=== PATIENT | female | born 1955 | race American Indian/Alaskan Native ===

== ENCOUNTER 2016-12-06 18:08 | Emergency (ER) | payer OTHER ==
[2016-12-06 18:23] VITALS: RESP 18; O2SAT 99
--- NOTE | 2016-12-06 19:47 | C.PDOC ---
History Of Present Illness 61 yo female with niddm co bilateral side pain, right more than left, for more than a week. pt sts she was couging persistently and sneezing a lot, no fever or chills. pt seen by pmd last week for this and prescribed cough medicine and allergy medicine. pt sts both sides hurt when she breaths. laughs. moves, coughs or sneezes. no fever or chills. pt with no chest pain and no sob. Time Seen by Provider: 12/06/16 18:41 Chief Complaint (Nursing): Rib Injury History Per: Patient History/Exam Limitations: no limitations Onset/Duration Of Symptoms: Days (10) Current Symptoms Are (Timing): Still Present Severity: Moderate Reports Recently: Treated By A Physician Recent travel outside of the [place]: No Past Medical History Reviewed: Historical Data, Nursing Documentation, Vital Signs Vital Signs: Last Vital Signs Temp 98.7 F 12/06/16 20:11 Pulse 80 12/06/16 20:11 Resp 18 12/06/16 20:11 BP 118/63 12/06/16 20:11 Pulse Ox 99 12/06/16 20:11 - Medical History PMH: Diabetes Family History: States: Unknown Family Hx - Social History Hx Tobacco Use: No Hx Alcohol Use: No Hx Substance Use: No - Immunization History Hx Tetanus Toxoid Vaccination: No Hx Influenza Vaccination: No Hx Pneumococcal Vaccination: No Review Of Systems Constitutional: Negative for: Fever, Chills Cardiovascular: Negative for: Chest Pain, Palpitations Respiratory: Positive for: Cough, Pleuritic Pain. Negative for: Shortness of Breath, SOB with Excertion Gastrointestinal: Negative for: Abdominal Pain Musculoskeletal: Negative for: Neck Pain, Back Pain Skin: Negative for: Bruising Neurological: Negative for: Weakness, Numbness Physical Exam - Physical Exam Appears: Non-toxic, No Acute Distress Skin: Normal Color, Warm, Dry Head: Atraumatic, Normacephalic Neck: Normal ROM, No Midline Cervical Tenderness Chest: Symmetrical, No Deformity, Tenderness (bilateral lower rib cage area in axillary line; no step off, no crepitus noted;no ecchymosis. ) Respiratory: No Accessory Muscle Use, No Rales, No Rhonchi, No Stridor, No Wheezing Gastrointestinal/Abdominal: Soft, No Tenderness Back: Normal Inspection, No CVA Tenderness, No Vertebral Tenderness Neurological/Psych: Oriented x3, Normal Speech ED Course And Treatment O2 Sat by Pulse Oximetry: 99 - Radiology CXR: Interpreted by Me, Viewed By Me CXR Interpretation: No: No Acute Disease, Infiltrates Medical Decision Making Medical Decision Making: cxr neg/ pain decreased. likely musculoskeletal pain. will d/c with nsaids and pmd f/u Disposition Counseled Patient/Family Regarding: Diagnosis, Need For Followup, Rx Given - Disposition Referrals: Norma Garcia MD [Medical Doctor] - Disposition: HOME/ ROUTINE Disposition Time: 20:02 Condition: STABLE Additional Instructions: Continue taking medication for cough and sneezing. Hold side if coughing or sneezing. Take naproxen for pain as directed. Follow up with Dr Garcia. Return to ER for any worse symptoms. Prescriptions: Naproxen 500 mg PO BID #20 tab Instructions: Chest Wall Pain (ED) Forms: General Discharge Instructions - Clinical Impression Clinical Impression: Sprain of ribs, initial encounter
[2016-12-06 20:11] VITALS: BP 118/63; PULSE 80; TEMP 98.7
--- NOTE | 2016-12-07 08:34 | RAD ---
HISTORY: right lateral rib pin x 1 week s/p coughing COMPARISON: Print for No prior. TECHNIQUE: Chest PA and lateral FINDINGS: LUNGS: No active pulmonary disease. PLEURA: No significant pleural effusion identified. No pneumothorax apparent. CARDIOVASCULAR: Normal. OSSEOUS STRUCTURES: No significant abnormalities. VISUALIZED UPPER ABDOMEN: Normal. OTHER FINDINGS: None. IMPRESSION: No active disease. Concordant results with the preliminary interpretation rendered by the emergency department physician procedure.
== END 2016-12-06 20:12 | disposition home or self-care (01) ==
LOC: C.ER 18:08
DX: S23.41XA Sprain of ribs, initial encounter (principal); X58.XXXA Exposure to other specified factors, initial encounter
CPT/HCPCS: 71020; 96372; 99283; J1885

== ENCOUNTER 2018-01-10 18:22 | Emergency (ER) | payer OTHER ==
[2018-01-10 19:52] LABS: BASO # 0.1 K/uL (0.0-0.2); BASO % 1.2 % (0.0-2.0); EOS # 0.2 K/uL (0.0-0.7); EOS % 2.5 % (0.0-4.0); HEMOGLOBIN 13.4 g/dL (11.0-16.0); LYMPH # 3.2 K/uL (1.0-4.3); LYMPH % 32.7 % (20.0-40.0); MEAN CELL VOLUME 94.2 fL (81.0-99.0); MEAN CORPUSCULAR HEMOGLOBIN 31.6 pg (27.0-31.0); MEAN CORPUSCULAR HGB CONC 33.5 g/dL (33.0-37.0); MEAN PLATELET VOLUME 8.5 fL (7.2-11.7); MONO # 0.4 K/uL (0.0-0.8); MONO % 4.3 % (0.0-10.0); NEUT # 5.7 K/uL (1.8-7.0); NEUT % 59.3 % (50.0-75.0); NRBC % 0.2 % (0.0-2.0); RBC 4.26 Mil/uL (3.80-5.20); RED CELL DISTRIBUTION WIDTH 13.1 % (11.5-14.5); WHITE BLOOD COUNT 9.7 K/uL (4.8-10.8)
[2018-01-10 20:03] LABS: ALB/GLOB RATIO 1.5 (1.0-2.1); ALBUMIN 4.2 g/dL (3.5-5.0); ALT/SGPT 27 U/L (9-52); AST/SGOT 18 U/L (14-36); BLOOD UREA NITROGEN 15 mg/dL (7-17); CALCIUM 9.1 mg/dl (8.6-10.4); GFR NON-AFRICAN AMERICAN > 60
[2018-01-10] MEDS ORDERED: Iodixanol 320 MG/ML 100 ML BOTTLE IV ONE (20:15)
--- NOTE | 2018-01-10 21:29 | C.PDOC ---
"History Of Present Illness 62 year old female with PMHx thyroid disease presents to the ED c/o swelling to her right jaw that she noticed today. Patient states the swelling is causing some pain radiating to her right ear. Patient went get a thyroid scan last week but still awaiting on the results. Patient denies fever, chills, sore throat, painful swallowing, SOB, trauma, injury, fall. Time Seen by Provider: 01/10/18 19:18 Chief Complaint (Nursing): ENT Problem History Per: Patient History/Exam Limitations: None Onset/Duration Of Symptoms: Hrs Current Symptoms Are (Timing): Still Present Quality (Mouth/Throat): Swelling Severity: Mild Anticoagulant/Antiplatlet Use?: No Recent Aspirin Use: No Past Medical History Reviewed: Historical Data, Nursing Documentation, Vital Signs Vital Signs: Last Vital Signs Temp 98.4 F 01/10/18 21:54 Pulse 73 01/10/18 21:54 Resp 18 01/10/18 21:54 BP 135/85 01/10/18 21:54 Pulse Ox 98 01/10/18 22:38 - Medical History PMH: Diabetes Other PMH: Thyroid disease Surgical History: No Surg Hx Family History: States: Unknown Family Hx - Social History Hx Tobacco Use: No Hx Alcohol Use: No Hx Substance Use: No - Immunization History Hx Tetanus Toxoid Vaccination: No Hx Influenza Vaccination: No Hx Pneumococcal Vaccination: No Review Of Systems Constitutional: Negative for: Fever, Chills ENT: Positive for: Ear Pain (right), Throat Swelling. Negative for: Throat Pain Cardiovascular: Negative for: Chest Pain, Palpitations Respiratory: Negative for: Cough, Shortness of Breath Gastrointestinal: Negative for: Nausea, Vomiting Neurological: Negative for: Weakness, Numbness Physical Exam - Physical Exam Appears: Non-toxic, No Acute Distress Skin: Normal Color, Warm, Dry Head: Atraumatic, Normacephalic, No Swelling (facial) Eye(s): bilateral: Normal Inspection Ear(s): Bilateral: Normal Nose: No Discharge Oral Mucosa: Moist Tongue: No Swelling Lips: No Swelling Throat: Normal, No Erythema, No Exudate Neck: Normal ROM, Supple, Other (minimally tender indurated palpable mass to the right upper neck extending below the right mandible, not fluctuant, no warmth or erythema. No facial swelling) Chest: Symmetrical Cardiovascular: Rhythm Regular Respiratory: Normal Breath Sounds, No Rales, No Rhonchi, No Wheezing Extremity: Normal ROM, No Tenderness, No Swelling Neurological/Psych: Oriented x3, Normal Speech, Normal Cognition, Normal Motor, Normal Sensation Gait: Steady ED Course And Treatment - Laboratory Results Result Diagrams: 01/10/18 19:42 01/10/18 19:42 O2 Sat by Pulse Oximetry: 98 (ON RA) Pulse Ox Interpretation: Normal - CT Scan/US CT neck Other Rad Studies (CT/US): Read By Radiologist, Radiology Report Reviewed CT/US Interpretation: EXAM: CT Neck With Intravenous Contrast. CLINICAL HISTORY: 62 years old, female; Signs and symptoms; Mass, lump, or swelling in neck; Additional info: Right. upper neck / submandibular abscess. TECHNIQUE: Axial computed tomography images of the neck with intravenous contrast. All CT scans at this. facility use at least one of these dose optimization techniques : automated exposure control; mA. and/or kV adjustment per patient size ( includes targeted exams where dose is matched to clinical. indication); or iterative reconstruction. Coronal and sagittal reformatted images were created and reviewed. CONTRAST: 100 mL of visipaque 320 administered intravenously. COMPARISON: No relevant prior studies available. FINDINGS: Oropharynx: Normal. No significant tonsillar enlargement. No peritonsillar abscess. Hypopharynx: Normal. Larynx: Normal. Normal epiglottis. Trachea: Normal. Retropharyngeal space: Normal. Submandibular/parotid glands: Enlargement of the right submandibular gland with surrounding. inflammatory changes and trace surrounding phlegmon or edema. No radiopaque sialolith. Thyroid: Multiple hypodense thyroid nodules measuring up to 1.7 cm. Bones/joints: Cervical spondylosis. No acute fracture. Soft tissues: Normal. Vasculature: Focal noncalcified plaque about the right brachiocephalic artery. Lymph nodes: Prominent right submandibular lymph nodes are present measuring up to 1.5 cm,. likely reactive. NAIF OCHO[facility] | Preliminary Radiology Report. CONFIDENTIALITY STATEMENT. This report is intended only for the use of the referring physician, and only in accordance with law, If you received this in error, call [phone]. Page 2 of 2. Dental: The patient is partially edentulous. Lung apices: Subpleural reticular opacities within the dependent aspect of the lower lobes may. represent subsegmental atelectasis or scarring. IMPRESSION: 1. Right submandibular gland sialadenitis. This may be infectious in nature given lack of evidence. sialolith. Correlate with clinical parameters and recommend close clinical surveillance. Recommend. followup imaging and otolaryngology consultation if this condition worsens or fails to resolve. 2. Left thyroid nodules measuring up to 1.7 cm. Recommend further evaluation with thyroid. ultrasound. 3. Noncalcified plaque about the proximal right brachiocephalic artery. Thank you for allowing us to participate in the care of your patient. Dictated and Authenticated by: Froy Hdz DO. 01/10/2018 9:28 PM Eastern Time ([place] & [place]) Progress Note: Plan: - CT neck. - Labs. - Augmentin 1 tab PO. Patient was prescribed Augmentin PO, Patient was advised to go and follow up with an ENT for further evaluation. Patient was educated on return precautions if symptoms worsen. Disposition Counseled Patient/Family Regarding: Diagnosis, Need For Followup - Disposition Referrals: Allan Young MD [Staff Provider] - Disposition: HOME/ ROUTINE Disposition Time: 21:38 Condition: STABLE Additional Instructions: Take medications as directed Please follow up with Dr Young Suck on hard candy or lemon Return to ER if fever, facial swelling, increasing neck swelling or worse Prescriptions: Amoxicillin/Clavulanate [Augmentin 875 MG-125 MG] 1 tab PO BID #14 tab Instructions: Salivary Gland Infection (DC) Forms: [employer] (Croatian) - Clinical Impression Clinical Impression: Sialadenitis - PA / EDGER TECHNICIAN / Resident Statement / has reviewed & agrees with the documentation as recorded. - Scribe Statement The provider has reviewed the documentation as recorded by the Scribe Jose Pena All medical record entries made by the Scribe were at my direction and personally dictated by me. I have reviewed the chart and agree that the record accurately reflects my personal performance of the history, physical exam, medical decision making, and the department course for this patient. I have also personally directed, reviewed, and agree with the discharge instructions and disposition."
[2018-01-10] MEDS ORDERED: Amoxicillin-Clav 875-125 mg Tab PO STA (21:44)
[2018-01-10] MEDS ORDERED: Amoxicillin-Clav 875-125 mg Tab PO ONE (21:52)
[2018-01-10 21:55] VITALS: BP 135/85; PULSE 73; RESP 18; TEMP 98.4
[2018-01-10 22:34] VITALS: O2SAT 98
--- NOTE | 2018-01-11 10:34 | CT ---
Date of service: 01/10/2018 PROCEDURE: CT NECK WITH CONTRAST HISTORY: Right upper neck / submandibular abscess COMPARISON: None available. TECHNIQUE: CT of the neck with intravenous contrast. Fletcher foci l and sagittal reformats generated. Intravenous contrast dose: 100 cc Visipaque 320 Radiation dose: DLP 464.14 mGy-cm This CT exam was performed using one or more of the following dose reduction techniques: Automated exposure control, adjustment of the mA and/or kV according to patient size, and/or use of iterative reconstruction technique. FINDINGS: NASOPHARYNX: Unremarkable. SUPRAHYOID NECK: Unremarkable oropharynx, oral cavity, parapharyngeal space and retropharyngeal space. INFRAHYOID NECK: Unremarkable larynx, hypopharynx, and supraglottic space. Vocal cords intact. MASS: None. GLANDS: There are mild nonspecific infiltration changes and fluid seen in subcutaneous tissues of the mid and right submandibular region extending superiorly with thickening of the right aspect of the platysma with subjacent infiltration and what appears represent tiny amount of fluid. These changes abut the right inferolateral and right posterior inferior margin of the right submandibular gland. The right submandibular gland is also slightly larger than the left side. There are no calculi are seen within the with lateral left submandibular gland or along the expected the distribution of the submandibular duct (Veronica's duct). Collectively these findings most likely represent a sialoadenitis of the right submandibular gland. . The left submandibular gland and both parotid glands unremarkable. Elliptical shaped low-attenuation nodule posterior aspect left lobe thyroid gland measuring approximately 15.3 x 7.4 mm. Thyroid ultrasound followup suggested. LYMPH NODES: Multiple small nonspecific bilateral cervical lymph nodes (level 1-2) are present the none of which appear pathologically enlarged. Small lymph nodes are present in the mid submental region, submandibular regions bilaterally as well as in the jugulodigastric regions. CERVICAL SPINE: Mild multilevel degenerative spondylosis of the cervical spine. No acute fractures. VASCULAR STRUCTURES: Unremarkable. OTHER FINDINGS: Minor biapical pleural thickening. There are also some minor scarring changes seen right lung apex along with a few small right apical blebs. IMPRESSION: Findings most likely represent a sialoadenitis involving the right submandibular gland with surrounding infiltration and fluid on as above. . Rule out infectious/inflammatory etiology. No evidence of calculi within the gland or along the distribution of the right submandibular duct (Egnar's duct). . Multiple small bilateral cervical lymph nodes. . Small elliptical shaped low-attenuation nodule lesion left lobe thyroid gland. Recommend followup thyroid ultrasound.
== END 2018-01-10 21:55 | disposition home or self-care (01) ==
LOC: C.ER 18:22
DX: K11.20 Sialoadenitis, unspecified (principal)
CPT/HCPCS: 70491; 80053; 85025; 99284; Q9967